=== PATIENT | female | born 1990 | race Two or more races ===

== ENCOUNTER 2016-08-05 16:13 | Inpatient (IN) | payer MEDICAID ==
[2016-08-05] VITALS (68 sets, daily range): BP systolic 92–134; BP diastolic 51–87; PULSE 66–275; RESP 16–18; TEMP 97.7–98.1; O2SAT 98
[2016-08-05] MEDS ORDERED: LACTATED RINGER'S 1000 ML INJ 1,000 ML IV PRN (16:31)
[2016-08-05] MEDS ORDERED: LACTATED RINGER'S 1000 ML INJ 1,000 ML IV SCH (16:31)
--- NOTE | 2016-08-05 16:38 | PD ---
HPI Chief Complaint Contractions Date Seen: Aug 05, 2016 Time Seen: 16:20 (Samy Santoro MD R1) Travel History International Travel<30 Days: No Contact w/Intl Traveler<30Days: No Known Affected Area: No (Samy Santoro MD R1) History of Present Illness HPI 26 year old Bruneian-speaking at 40.3 weeks gestation presents to OB ED with complaints of contractions. Translation was provided by Giulia, nurse sr. media manager. Denies LOF. Reports +FM. She receives care through [facility]. She is GBS positive. Para: 1 : 2 (Samy Santoro MD R1) History Past Medical History Medical History: Denies Significant Hx (Samy Santoro MD) Obstetric History Obstetric History Patient reports her first resulted in a term uncomplicated vaginal delivery (Samy Santoro MD R1) Past Surgical History Surgical History: No Previous Surgery (Samy Santoro MD) Family History Family History: Negative (Samy Santoro MD) Social History Alcohol Use: No Tobacco Use: No Substance Abuse: No (Samy Santoro MD R1) Allergies-Medications (Allergen,Severity, Reaction): Coded Allergies: No Known Allergies (Unverified , 08/05/16) Review of Systems Except as stated in HPI: all other systems reviewed are Neg (Samy Santoro MD R1) Physical Exam Narrative GENERAL: Well-nourished, well-developed patient. SKIN: Warm and dry. HEAD: Normocephalic and atraumatic. EYES: No scleral icterus. No injection or drainage. ENT: No nasal drainage noted. Mucous membranes pink. Airway patent. NECK: Supple, trachea midline. No JVD. CARDIOVASCULAR: Regular rate and rhythm without murmurs, gallops, or rubs. RESPIRATORY: Breath sounds equal bilaterally. No accessory muscle use. ABDOMEN/GI: Abdomen soft, non-tender, bowel sounds present, no rebound, no guarding Gravid to 38 weeks size GENITOURINARY: External Genitalia: intact and normal in appearance Cervix: midposition Dilatation: 6 Effacement: 90% Station: -1 Presentation: vertex Uterine Contractions: Irregular on tocometer FHT's: Category: I Baseline: 120s Reactive: yes Variability: moderate Decels: none EXTREMITIES: No cyanosis or edema. BACK: Nontender without obvious deformity. NEUROLOGICAL: Awake and alert. Motor and sensory grossly within normal limits. Normal speech. (Samy Santoro MD R1) Data Data Vital Signs Reviewed: Yes Orders Vital Signs (Adult) .ON ADMISSION (08/05/16 16:23) ^ Labor Status (08/05/16 16:23) Urinalysis - C+S If Indicated (08/05/16 16:23) ^ Hydration (08/05/16 16:23) (Samy Santoro MD R1) [facility] Medical Record Reviewed: Yes Plan 26 year old at 40.3 weeks gestation presented with complaints of contractions. 1. IUP - Category I tracing, reassuring - Irregular contractions on tocometer - Cervix: /-1, vertex - Admit to L&D for labor - GBS positive, will start PCN ppx per protocol - Does not desire epidural - Continue expectant management dw Dr. Hercules (Samy Santoro MD R1) Plan Patient seen and examined. Will admit. (Aida Hercules MD) Samy Santoro MD R1 Aug 05, 2016 16:38 Aida Hercules MD Aug 05, 2016 19:01
[2016-08-05] MEDS ORDERED: LIDOCAINE HCL 1% 50 ML VIAL I-DERMAL PRN (16:45)
[2016-08-05] MEDS ORDERED: CITRIC ACID-SODIUM CITRATE LIQ 30 ML UDC PO SCH (16:45)
[2016-08-05] MEDS ORDERED: ONDANSETRON HCL 4 MG/2 ML VIAL IV PRN (16:45)
[2016-08-05] MEDS ORDERED: LIDOCAINE HCL 1% 50 ML VIAL INFIL PRN (16:45)
[2016-08-05] MEDS ORDERED: MINERAL OIL 10 ML VIAL TOPICAL PRN (16:45)
[2016-08-05] MEDS ORDERED: SODIUM CHLORID 0.9% 500 ML INJ 500 ML IV PRN (16:45)
[2016-08-05] MEDS ORDERED: OXYTOCIN 30 UNITS-500ML PREMIX 500 ML IV ONE (16:45)
[2016-08-05] MEDS ORDERED: SODIUM CHLOR 0.9% 1000 ML INJ 1,000 ML IV PRN (16:51)
[2016-08-05] MEDS ORDERED: PENICILLIN G POTASSIUM INJ 5,000,000 UNITS in SODIUM CHLORIDE 0.9% INJ 100 ML IV ONE (17:00)
[2016-08-05 17:28] LABS: AUTOMATED NEUTROPHIL # 6.9 TH/MM3 (1.8-7.7); BASOPHIL % 0.4 % (0.0-2.0); EOSINOPHIL % 0.5 % (0.0-4.0); HEMO FLAGS DIFF FINAL; LYMPH % 23.2 % (9.0-44.0); LYMPHOCYTE # 2.3 TH/MM3 (1.0-4.8); MEAN CELL VOLUME 83.9 FL (80.0-100.0); MEAN CORPUSCULAR HEMOGLOBIN 27.8 PG (27.0-34.0); MEAN CORPUSCULAR HGB CONC 33.1 % (32.0-36.0); MONO % 5.7 % (0.0-8.0); NEUT % 70.2 % (16.0-70.0); PLATELET COUNT 242 TH/MM3 (150-450); RED BLOOD COUNT 4.41 MIL/MM3 (4.00-5.30); RED CELL DISTRIBUTION WIDTH 17.6 % (11.6-17.2); WHITE BLOOD COUNT 9.9 TH/MM3 (4.0-11.0)
[2016-08-05 17:32] LABS: BACTERIA, URINE MANY /hpf; BLOOD, URINE LARGE (NEG); COMMENT (UR) CULTURE INDICATED; CULTURE IF INDICATED CULTURE INDICATED; GLUCOSE,URINE NEG (NEG); KETONE, URINE NEG (NEG); NITRITE,URINE NEG (NEG); PH, URINE 6.5 (5.0-8.5); SQUAMOUS EPITHELIAL CELL URINE 65 /hpf (0-5); URINE COLOR YELLOW (YELLW/STRAW)
--- NOTE | 2016-08-05 17:45 | HHI.HP ---
HPI Chief Complaint Contractions Date Seen: Aug 05, 2016 Travel History International Travel<30 Days: No Contact w/Intl Traveler<30Days: No Known Affected Area: No History of Present Illness HPI 25 yo at 40w 3d, F[facility] 08-02-16 per 1st trimester US, presents with c/o contractions. Patient reports contractions beginning earlier today. Denies LOF/VB. Reports good FM. German speaking only, translation services utilized. care with [facility]. Para: 1 : 2 History Past Medical History Medical History: Denies Significant Hx Obstetric History Obstetric History G1 2010 FT female 8# 0oz, delivered in [place] without complications Past Surgical History Surgical History: No Previous Surgery Family History Family History: Negative Social History Alcohol Use: No Tobacco Use: No Substance Abuse: No Allergies-Medications (Allergen,Severity, Reaction): Coded Allergies: No Known Allergies (Unverified , 08/05/16) Physical Exam Vital Signs Date Time Temp Pulse Resp B/P Pulse Ox O2 Delivery O2 Flow Rate FiO2 08/05/16 16:45 16 08/05/16 16:45 98.1 08/05/16 16:40 79 08/05/16 16:32 79 131/72 08/05/16 16:30 71 Narrative GENERAL: Well-nourished, well-developed patient. SKIN: Warm and dry. HEAD: Normocephalic and atraumatic. EYES: No scleral icterus. No injection or drainage. ENT: No nasal drainage noted. Mucous membranes pink. Airway patent. NECK: Supple, trachea midline. No JVD. CARDIOVASCULAR: Regular rate and rhythm without murmurs, gallops, or rubs. RESPIRATORY: Breath sounds equal bilaterally. No accessory muscle use. BREASTS: Bilateral exam showed no masses , no retractions, no nipple discharge. ABDOMEN/GI: Abdomen soft, non-tender, bowel sounds present, no rebound, no guarding Gravid to [-] weeks size Fundal Height: [-] GENITOURINARY: External Genitalia: intact and normal in appearance BUS glands: [-] Cervix: [-] Dilatation: [6-7] Effacement: [80] Station: [-1] Presentation: [cephalic] Membranes: [intact or ruptured] Uterine Contractions: [irregular] FHT's: Category: [-] Baseline: [-] Reactive: [-] Variability: [-] Decels: [-] EXTREMITIES: No cyanosis or edema. BACK: Nontender without obvious deformity. No CVA tenderness. NEUROLOGICAL: Awake and alert. Motor and sensory grossly within normal limits. Five out of 5 muscle strength in all muscle groups. Normal speech. Data Data Orders Vital Signs (Adult) .ON ADMISSION (08/05/16 16:23) ^ Labor Status (08/05/16 16:23) Urinalysis - C+S If Indicated (08/05/16:23) ^ Hydration (08/05/16 16:23) Admit To Inpatient (08/05/16 ) Code Status (08/05/16 16:31) Vital Signs (Adult) .Per protocol (08/05/16 16:31) Activity Oob Ad Eloise (08/05/16 16:31) ^ Heart (08/05/16 16:31) ^ Amnioinfusion (08/05/16 16:) Urinary Catheter Management .ONCE (08/05/16 16:31) Diet Liquid (08/05/16 Dinner) Lactated Ringer's 1000 Ml Inj (Lr 1000 M (08/05/16 16:31) Lactated Ringer's 1000 Ml Inj (Lr 1000 M (08/05/16 16:31) Sodium Chlorid 0.9% 500 Ml Inj (Ns 500 M (08/05/16 16:45) Sodium Chlor 0.9% 1000 Ml Inj (Ns 1000 M (08/05/16 16:51) Lidocaine 1% Inj (50 Ml) (Xylocaine 1% I (08/05/16 16:45) Citric Acid-Sodium Citrate Liq (Bicitra (08/05/16 16:45) Ondansetron Inj (Zofran Inj) (08/05/16 16:45) Fentanyl Inj (Fentanyl Inj) (08/05/16 16:45) Fentanyl Inj (Fentanyl Inj) (08/05/16 16:45) Complete Blood Count With Diff (08/05/16 16:31) Hold Clot (08/05/16 16:31) Abo/Rh Blood Type (08/05/16 16:31) Resp Oxygen Non Rebreathe Mask (08/05/16 ) ^ Epidural / Intrathecal Infus (08/05/16 16:31) Oxytocin 30 Units-500ml Premix (Pitocin (08/05/16 16:45) Lidocaine 1% Inj (50 Ml) (Xylocaine 1% I (08/05/16 16:45) Light Mineral Oil (Muri-Lube Oil) (08/05/16 16:45) Inpatient Certification (08/05/16 ) Group B Strep Pcr (Rapid) (08/05/16 16:31) Penicillin G Potassium Inj (Pfizerpen-G (08/05/16 17:00) Penicillin G Potassium Inj (Pfizerpen-G (08/05/16 21:00) Urine Culture (08/05/16 16:55) Labs PNL: B positive/antibody negative, Rubella- immune, RPR- NR, Hep B- negative, HIV- negative, GC/Chl- negative, GBS- positive Laboratory Tests Test 08/05/16 16:55 White Blood Count 9.9 Red Blood Count 4.41 Hemoglobin 12.3 Hematocrit 37.0 Mean Corpuscular Volume 83.9 Mean Corpuscular Hemoglobin 27.8 Mean Corpuscular Hemoglobin 33.1 Concent Red Cell Distribution Width 17.6 Platelet Count 242 Mean Platelet Volume 9.1 Neutrophils (%) (Auto) 70.2 Lymphocytes (%) (Auto) 23.2 Monocytes (%) (Auto) 5.7 Eosinophils (%) (Auto) 0.5 Basophils (%) (Auto) 0.4 Neutrophils # (Auto) 6.9 Lymphocytes # (Auto) 2.3 Monocytes # (Auto) 0.6 Eosinophils # (Auto) 0.0 Basophils # (Auto) 0.0 CBC Comment DIFF FINAL Differential Comment Urine Color YELLOW Urine Turbidity CLOUDY Urine pH 6.5 Urine Specific [place] 1.011 Urine Protein 30 Urine Glucose (UA) NEG Urine Ketones NEG Urine Occult Blood LARGE Urine Nitrite NEG Urine Bilirubin NEG Urine Urobilinogen LESS THAN 2.0 Urine Leukocyte Esterase MOD Urine RBC 7 Urine WBC 37 Urine WBC Clumps RARE Urine Squamous Epithelial 65 Cells Urine Amorphous Sediment RARE Urine Bacteria MANY Microscopic Urinalysis Comment CULTURE INDICATED Date/Time Procedure Status Source Growth 08/05/16 16:55 Urine Culture Received Urine Clean Catch Pending Assessment/Plan Assessment and Plan 25 yo at 40w 3d in active labor, GBS positive. Will admit. Will begin GBS prophylaxis. Closely monitor. Anticipate . Aida Hercules MD 23, 2017 17:45
[2016-08-05] MEDS ORDERED: fentaNYL 2MCG-BUPIV 0.125% INJ 100 ML ONE (17:59)
[2016-08-05] MEDS ORDERED: ePHEDrine/NS 25 MG/5 ML SYR ONE (18:00)
[2016-08-05] MEDS ORDERED: NO SYSTEM NARCOTICS XX PRN (19:30)
[2016-08-05] MEDS ORDERED: fentaNYL 2MCG-BUPIV 0.125% 100 ML EPIDURAL SCH (19:30)
[2016-08-05] MEDS ORDERED: DO NOT ADMINISTER ANTICOAGULANTS XX PRN (19:30)
[2016-08-05] MEDS ORDERED: ePHEDrine/NS 25 MG/5 ML SYR IV PRN (19:30)
[2016-08-05] MEDS ORDERED: PENICILLIN G POTASSIUM INJ 2,500,000 UNITS in SODIUM CHLORIDE 0.9% INJ 100 ML IV SCH (21:00)
--- NOTE | 2016-08-05 23:03 | PD.LABORPN ---
Subjective Subjective Patient without complaints, s/p epidural. Objective Vital Signs Vital Signs Date Time Temp Pulse Resp B/P Pulse Ox O2 Delivery O2 Flow Rate FiO2 08/05/16 22:30 98.0 08/05/16 22:30 18 08/05/16 21:57 18 08/05/16 21:55 68 08/05/16 21:50 77 08/05/16 21:45 68 92/56 08/05/16 21:45 70 08/05/16 21:45 18 08/05/16 21:40 70 08/05/16 21:35 68 08/05/16 21:31 66 93/51 08/05/16 21:30 67 08/05/16 21:22 18 08/05/16 21:20 76 08/05/16 21:15 71 113/70 08/05/16 21:15 70 08/05/16 21:00 18 08/05/16 20:55 75 08/05/16 20:50 73 08/05/16 20:46 72 113/79 08/05/16 20:45 67 08/05/16 20:40 70 08/05/16 20:35 71 08/05/16 20:30 70 08/05/16 20:30 74 120/76 08/05/16 20:30 18 08/05/16 20:25 69 08/05/16 20:20 73 08/05/16 20:15 73 117/81 08/05/16 20:15 68 08/05/16 20:08 18 08/05/16 20:05 71 08/05/16 20:00 78 118/79 08/05/16 20:00 74 08/05/16 19:55 73 08/05/16 19:50 74 08/05/16 19:45 72 117/81 08/05/16 19:45 78 08/05/16 19:34 18 08/05/16 19:30 71 08/05/16 19:30 72 96/57 08/05/16 19:22 18 08/05/16 19:20 78 08/05/16 19:15 79 18 97/61 08/05/16 19:10 76 08/05/16 19:05 86 08/05/16 19:00 89 08/05/16 19:00 85 99/68 08/05/16 18:56 275 103/65 08/05/16 18:55 82 08/05/16 18:50 104 08/05/16 18:50 82 103/87 08/05/16 18:46 94 111/71 08/05/16 18:45 86 08/05/16 18:41 89 123/75 08/05/16 18:40 85 08/05/16 18:36 85 125/68 08/05/16 18:35 89 08/05/16 18:31 90 103/57 08/05/16 18:30 90 08/05/16 18:25 94 134/77 08/05/16 18:25 97 08/05/16 18:20 99 08/05/16 18:10 69 125/74 08/05/16 18:10 97.7 08/05/16 18:10 18 08/05/16 16:45 16 08/05/16 16:45 98.1 08/05/16 16:40 79 08/05/16 16:32 79 131/72 08/05/16 16:30 71 Objective Pelvic Exam: Cervix: [-] Dilatation: [9] Effacement: [90] Station: [-1] Presentation: [-] Membranes: [AROM- clear fluid, patient tolerated well] Uterine Contractions: [q 2-3] FHT's: Category: [1] Baseline: [130s] Reactive: [-] Variability: [moderate] Decels: [none] Assessment/Plan Assessment and Plan IUP at 40w 3d, active labor, GBS positive. Continue abx/current management. Aida Hercules MD Aug 05, 2016 23:03
[2016-08-06] VITALS (12 sets, daily range): BP systolic 92–116; BP diastolic 58–87; PULSE 67–77; RESP 15–20; TEMP 97.8–98.2
--- NOTE | 2016-08-06 00:12 | PD.OB.DELI ---
Delivery Date: Aug 05, 2016 (TOD 2351, placenta delivery 2356) Anesthesia: Epidural Vaginal Delivery: Normal Presentation: Occiput anterior Nuchal Cord: None : Male One Minute : 8 Five Minute : 9 Weight: 3465g Care: Suctioned Placenta: Spontaneous delivery Laceration: No lacerations Additional Information Patient and infant in stable condition Aida Hercules MD Aug 06, 2016 00:12
[2016-08-06] MEDS ORDERED: WITCH HAZEL 50%/GLYCERIN 12.5% 40 PAD JAR TOP PRN (02:45)
[2016-08-06] MEDS ORDERED: BENZOCAINE 20% TOPICAL SPRAY 60 ML CAN TOP PRN (02:45)
[2016-08-06] MEDS ORDERED: ALUMINUM/MAGNESIUM/SIMETH 30 ML CUP PO PRN (02:45)
[2016-08-06] MEDS ORDERED: ONDANSETRON ODT 4 MG TAB PO PRN (02:45)
[2016-08-06] MEDS ORDERED: DOCUSATE SODIUM 50 MG/SENNA 8.6 MG TAB PO PRN (02:45)
[2016-08-06] MEDS ORDERED: ZOLPIDEM TARTRATE 5 MG TAB PO PRN (02:45)
[2016-08-06] MEDS ORDERED: ACETAMINOPHEN 325 MG TAB PO PRN (02:45)
--- NOTE | 2016-08-06 08:03 | HHI.OB ---
Subjective Post Day: 1 Remarks Patient seen and examined this morning. Translation was provided by the patient' s RN. AFVSS overnight. day #1. Pain is well controlled. She stated her vaginal bleeding is slightly more than the amount of a normal menstrual period for her. Denies dysuria. No breast tenderness. She is feeding the baby via breast and formula. She plans to order breakfast. No nausea or vomiting to this point. Not yet ambulating. Denies fever, calf pain, shortness of breath, or cough. She otherwise has no other complaints or concerns this morning. ( Samy Santoro MD R1) Attestation Patient seen and examined. Agree with plan. (Aida Hercules MD) Objective Vitals/I&O Vital Signs Date Time Temp Pulse Resp B/P Pulse Ox O2 Delivery O2 Flow Rate FiO2 08/06/16 02:50 97.8 77 16 92/58 08/06/16 01:50 18 08/06/16 01:45 67 110/71 08/06/16 01:05 18 08/06/16 01:00 68 110/65 08/06/16 00:50 18 08/06/16 00:45 76 106/87 08/06/16 00:30 76 112/72 08/06/16 00:16 116/61 08/06/16 00:16 18 08/06/16 00:00 20 08/05/16 23:55 87 98 08/05/16 23:46 73 121/81 08/05/16 23:17 18 08/05/16 23:16 70 111/64 08/05/16 23:15 77 08/05/16 23:00 18 08/05/16 22:55 71 08/05/16 22:50 77 08/05/16 22:46 75 104/64 08/05/16 22:45 76 08/05/16 22:30 98.0 08/05/16 22:30 18 08/05/16 22:25 77 08/05/16 22:20 73 08/05/16 22:15 86 08/05/16 22:15 73 99/57 08/05/16 21:57 18 08/05/16 21:55 68 08/05/16 21:50 77 08/05/16 21:45 68 92/56 08/05/16 21:45 70 08/05/16 21:45 18 08/05/16 21:40 70 08/05/16 21:35 68 08/05/16 21:31 66 93/51 08/05/16 21:30 67 08/05/16 21:22 18 08/05/16 21:20 76 08/05/16 21:15 71 113/70 08/05/16 21:15 70 08/05/16 21:00 18 08/05/16 20:55 75 08/05/16 20:50 73 08/05/16 20:46 72 113/79 08/05/16 20:45 67 08/05/16 20:40 70 08/05/16 20:35 71 08/05/16 20:30 70 08/05/16 20:30 74 120/76 08/05/16 20:30 18 08/05/16 20:25 69 08/05/16 20:20 73 08/05/16 20:15 73 117/81 08/05/16 20:15 68 08/05/16 20:08 18 08/05/16 20:05 71 08/05/16 20:00 78 118/79 08/05/16 20:00 74 08/05/16 19:55 73 08/05/16 19:50 74 08/05/16 19:45 72 117/81 08/05/16 19:45 78 08/05/16 19:34 18 08/05/16 19:30 71 08/05/16 19:30 72 96/57 08/05/16 19:22 18 08/05/16 19:20 78 08/05/16 19:15 79 18 97/61 08/05/16 19:10 76 08/05/16 19:05 86 08/05/16 19:00 89 08/05/16 19:00 85 99/68 08/05/16 18:56 275 103/65 08/05/16 18:55 82 08/05/16 18:50 104 08/05/16 18:50 82 103/87 08/05/16 18:46 94 111/71 08/05/16 18:45 86 08/05/16 18:41 89 123/75 08/05/16 18:40 85 08/05/16 18:36 85 125/68 08/05/16 18:35 89 08/05/16 18:31 90 103/57 08/05/16 18:30 90 08/05/16 18:25 94 134/77 08/05/16 18:25 97 08/05/16 18:20 99 08/05/16 18:10 69 125/74 08/05/16 18:10 97.7 08/05/16 18:10 18 08/05/16 16:45 16 08/05/16 16:45 98.1 08/05/16 16:40 79 08/05/16 16:32 79 131/72 08/05/16 16:30 71 Objective Remarks GENERAL: Well-nourished, well-developed patient. CARDIOVASCULAR: Regular rate and rhythm without murmurs, gallops, or rubs. RESPIRATORY: Breath sounds equal bilaterally. No accessory muscle use. ABDOMEN/GI: Abdomen soft, non-tender. Fundus: Firm, non-tender at umbilicus. GENITOURINARY: Moderate bleeding. EXTREMITIES: No cyanosis or edema, non-tender, without signs of DVT. Medications and IVs Current Medications Medications (Trade) Dose Ordered Sig/Alva Route Start Time Stop Time Status Last Admin (Tylenol) 650 mg Q4H PRN PO 08/06/16 02:45 (Motrin) 600 mg Q6H PRN PO 08/06/16 02:45 (Americaine 20% Top Spr) 1 spray Q4H PRN TOP 08/06/16 02:45 (Tucks Pads) 1 applic Q6H PRN TOP 08/06/16 02:45 (Flaquita-Colace) 2 tab Q12H PRN PO 08/06/16 02:45 (Ambien) 5 mg HS PRN PO 08/06/16 02:45 (M-M-R Ii Inj) 0.5 ml ONCE ONCE SQ 08/06/16 16:00 08/06/16 16:01 (Boostrix Inj) 0.5 ml ONCE ONCE IM 08/06/16 16:00 08/06/16 16:01 (Mag-Al Plus Susp Liq) 15 ml Q8H PRN PO 08/06/16 02:45 (Zofran Odt) 4 mg Q6H PRN PO 08/06/16 02:45 (Samy Santoro MD R1) Assessment/Plan Problem List: (1) care following vaginal delivery Assessment and Plan 25 year old now PPD#1. 1. Care - AFVSS - Encouraged OOB, as tolerated - Motrin prn pain - Advised pelvic rest x 6 weeks - Breast and formula feeding - Contraception: Still considering options - Will f/u with OB provider in 6 weeks - Anticipate discharge tomorrow 08/[address] Hercules (Samy Santoro MD R1) Samy Santoro MD R1 Aug 06, 2016 08:03 Aida Hercules MD Aug 06, 2016 10:20
[2016-08-06 10:54] LABS: HEMATOCRIT 31.5 % (35.0-46.0); MEAN CORPUSCULAR HEMOGLOBIN 27.5 PG (27.0-34.0); MEAN CORPUSCULAR HGB CONC 33.1 % (32.0-36.0); PLATELET COUNT 207 TH/MM3 (150-450); RED BLOOD COUNT 3.79 MIL/MM3 (4.00-5.30); RED CELL DISTRIBUTION WIDTH 17.2 % (11.6-17.2); REVIEW FLAG FINAL; WHITE BLOOD COUNT 13.5 TH/MM3 (4.0-11.0)
[2016-08-06] MEDS ORDERED: DIPHTH/TETANUS/ACEL PERTUSSIS (BOOSTER) 0.5 ML VIAL/PFS IM ONE (16:00)
[2016-08-06] MEDS ORDERED: MEASLES, MUMPS, RUBELLA VACCINE 0.5 ML VIAL SQ ONE (16:00)
[2016-08-06] MEDS: IBUPROFEN 600 MG TAB PO PRN (16:03)
[2016-08-07] MEDS: IBUPROFEN 600 MG TAB PO PRN (02:59)
--- NOTE | 2016-08-07 07:34 | HHI.OB ---
Subjective Post Day: 2 Remarks day # 2. AFVSS overnight. Pain controlled. Decreased lochia. Denies dysuria. No breast tenderness. She is feeding the baby via breast/ bottle. Appetite good. No nausea or vomiting. Positive flatus. Negative bowel movement. Ambulating well. Denies calf pain, shortness of breath, or cough. Otherwise, she is doing well this morning and has no other complaints. (Delonte Peterson MD R2) Objective Vitals/I&O Vital Signs Date Time Temp Pulse Resp B/P Pulse Ox O2 Delivery O2 Flow Rate FiO2 08/06/16 20:35 75 20 111/64 08/06/16 20:35 98.2 08/06/16 08:15 69 15 109/70 08/06/16 08:15 98.0 Objective Remarks GENERAL: Well-nourished, well-developed patient. CARDIOVASCULAR: Regular rate and rhythm without murmurs, gallops, or rubs. RESPIRATORY: Breath sounds equal bilaterally. No accessory muscle use. ABDOMEN/GI: Abdomen soft, non-tender. Fundus: Firm, non-tender at umbilicus. GENITOURINARY: Moderate bleeding. EXTREMITIES: No cyanosis or edema, non-tender, without signs of DVT. Medications and IVs Current Medications Medications (Trade) Dose Ordered Sig/Alva Route Start Time Stop Time Status Last Admin (Tylenol) 650 mg Q4H PRN PO 08/06/16 02:45 (Motrin) 600 mg Q6H PRN PO 08/06/16 02:45 08/07/16 02:59 (Americaine 20% Top Spr) 1 spray Q4H PRN TOP 08/06/16 02:45 (Tucks Pads) 1 applic Q6H PRN TOP 08/06/16 02:45 (Flaquita-Colace) 2 tab Q12H PRN PO 08/06/16 02:45 (Ambien) 5 mg HS PRN PO 08/06/16 02:45 (Mag-Al Plus Susp Liq) 15 ml Q8H PRN PO 08/06/16 02:45 (Zofran Odt) 4 mg Q6H PRN PO 08/06/16 02:45 (Delonte Peterson MD R2) Assessment/Plan Problem List: (1) care following vaginal delivery Assessment and Plan 25 year old now PPD#2 1. Care - AFVSS - Encouraged OOB, as tolerated - Motrin prn pain - Advised pelvic rest x 6 weeks - Breast and formula feeding - Contraception: Still considering options - Will f/u with OB provider in 6 weeks - Anticipate discharge today wdw Dr. Michele Discharge Planning Discharged home today (Delonte Peterson MD R2) Collaborating MD Comments Agree with discharge management. (Carol Michele MD) Delonte Peterson MD R2 Aug 07, 2016 07:34 Carol Michele MD Aug 07, 2016 08:20
[2016-08-07] MEDS ORDERED: IBUP-232 PO (07:48)
[2016-08-07] MEDS ORDERED: SENN1TAB PO (07:48)
--- NOTE | 2016-08-07 07:49 | HHI.DCPOC ---
Discharge Care Plan Diagnosis: (1) care following vaginal delivery Report Symptoms to Your Doctor -Temperate above 100.5 degrees -Redness, of incision or excessive or foul smelling drainage -Unusual pain or calf pain -Increased vaginal bleeding -Painful or difficulty urinating -Feelings of extreme sadness or anxiety after 2 weeks Goals to Promote Your Health * To prevent worsening of your condition and complications * To maintain your health at the optimal level Pelvic rest x 6 weeks Follow up with OB in 6 weeks Directions to Meet Your Goals Take your medications as prescribed Follow your dietary instruction Follow activity as directed Ensure plenty of rest for recovery Drink fluids for hydration Keep your appointments as scheduled Take your immunizations and boosters as scheduled If your symptoms worsen call your PCP, if no PCP go to Urgent Care Center or Emergency Room Smoking is Dangerous to Your Health. Avoid second hand smoke Call the 24-hour crisis hotline for domestic abuse at Delonte Peterson MD R2 Aug 07, 2016 07:49
[2016-08-07 08:00] VITALS: BP 106/72; PULSE 64; RESP 18; TEMP 98.2
== END 2016-08-07 11:32 | disposition home or self-care (01) | DRG 775 ==
LOC: HOBED 16:13 → EDBD 16:13 → H2EB 16:45 → H1EA 08-06 02:15
PROVIDERS: ADMIT Obstetrics & Gynecology; ATTEND Obstetrics & Gynecology
PROC: 10907ZC Drainage of Amniotic Fluid, Therapeutic from Products of Conception, Via Natural or Artificial Opening (ICD-10-PCS; 2016-08-05)
PROC: 00HU33Z Insertion of Infusion Device into Spinal Canal, Percutaneous Approach (ICD-10-PCS; 2016-08-05)
PROC: 3E0R3CZ (ICD-10-PCS; 2016-08-05)
PROC: 10E0XZZ Delivery of Products of Conception, External Approach (ICD-10-PCS; principal; 2016-08-06)
DX: O99.824 Streptococcus B carrier state complicating childbirth (principal); Z3A.40 40 weeks gestation of pregnancy; Z37.0 Single live birth
CPT/HCPCS: 81001; 85025; 85027; 86592; 86900; 86901; 87086; 99285; J2540; J3010; J7120